=== PATIENT | male | born 1980 | race Caucasian/White ===

== ENCOUNTER 2017-01-03 17:47 | Inpatient (IN) | payer SELFPAY ==
[2017-01-03] MEDS ORDERED: VITAMIN B-1 100 MG, FOLVITE 1 MG, INFUVITE 10 ML in NACL 0.9% 1000 ML 1,000 ML IV ONE (18:18)
[2017-01-03] MEDS ORDERED: ATIVAN IV ONE (18:20)
[2017-01-03] MEDS ORDERED: ATIVAN ONE (18:21)
[2017-01-03] MEDS ORDERED: NACL 0.9% 1000 ML 1,000 ML IV ONE (18:24)
--- NOTE | 2017-01-03 18:30 | Emergency Department Report ---
ED Alcohol HPI - General Chief Complaint: Psych Stated Complaint: CHEST PAIN Time Seen by Provider: 01/03/17 18:18 Source: patient Mode of arrival: Ambulatory Limitations: No Limitations - History of Present Illness Initial Comments: 36-year-old male with a history of alcohol abuse presents to the hospital complaining of chest pain and left-sided pain. Patient called a friend and asked for a ride. The friend states that when she arrived patient was complaining of left-sided chest pain, hand numbness, and left-sided pain and requested be brought to the ER for evaluation. Patient drinks about a fifth of whiskey daily with last drink reported today. He was admitted to another hospital 3 days ago for alcohol related issues. They're unsure as to which hospital he was admitted to. Patient is obviously intoxicated and agitated upon arrival. - Related Data Home Medications Medication Instructions Recorded Confirmed Last Taken No Known Home Medications [No 09/03/15 12/24/15 Unknown Reported Home Medications] Allergies Allergy/AdvReac Type Severity Reaction Status Date / Time No Known Allergies Allergy Verified 12/24/15 16:17 ED Review of Systems ROS: Stated complaint: CHEST PAIN Other details as noted in HPI Comment: All other systems reviewed and negative Other: Constitutional: No fevers chills Eyes: No eye pain visual changes ENT: No ear pain or throat pain Neck: Denies pain Respiratory: Denies cough Cardiovascular: as per hpi GI: generalized abd pain : Denies dysuria Musculoskeletal: Denies back pain Skin: Denies rash, lesions, erythema Neurologic: + tremors, hand numbness ED Past Medical Hx - Past Medical History Hx Hypertension: Yes Hx Heart Attack/AMI: Yes Hx Psychiatric Treatment: Yes (depression, alcohol abuse) Additional medical history: Patient reports prior history of GA. 4 years ago he describes being admitted for 2 days, to a hospital in [facility], being diagnosed with a heart attack. He cannot describe any tests that were done, even after we described cardiac stress test and cardiac catheterization. They do not sound familiar to him. He did not undergo any procedures such as stenting or bypass. Alcohol dependence and abuse. - Social History Smoking Status: Current Every Day Smoker Substance Use Type: Alcohol - Medications Home Medications: Home Medications Medication Instructions Recorded Confirmed Last Taken Type No Known Home Medications [No 09/03/15 12/24/15 Unknown History Reported Home Medications] ED Physical Exam - General Limitations: Language Barrier, Altered Mental Status - Other Other exam information: General: Alert Head exam: Atraumatic, normocephalic Eyes exam: Normal appearance, pupils equal reactive to light, extraocular movements intact ENT: Moist mucous membrane Neck exam: Normal inspection, full range of motion, no meningismus nontender Respiratory exam: Clear to auscultation bilateral, no wheezes, rales, crackles Cardiovascular: Normal rate and rhythm, normal heart sounds Abdomen: Soft, nondistended, generalized abdominal tenderness, with normal bowel sounds, no rebound, or guarding Extremity: Full range of motion normal inspection no deformity. Tenderness to palpation of his bilateral legs and arms Back: Normal Inspection, full range of motion, no tenderness Neurologic: Alert, oriented x3, cranial nerves intact, no motor or sensory deficit Psychiatric: Agitated Skin: Warm, dry, intact ED Course Vital Signs 01/03/17 01/03/17 01/03/17 17:57 18:10 18:11 Pulse Rate 127 H Respiratory 18 Rate Blood Pressure 134/93 123/84 Blood Pressure [Left] O2 Sat by Pulse 97 95 94 Oximetry 01/03/17 01/03/17 01/03/17 18:12 18:14 18:16 Pulse Rate 113 H 112 H Respiratory 37 H 34 H 32 H Rate Blood Pressure 123/84 123/84 123/84 Blood Pressure [Left] O2 Sat by Pulse 98 93 98 Oximetry 01/03/17 01/03/17 01/03/17 18:18 18:20 18:22 Pulse Rate 120 H 114 H 110 H Respiratory 32 H 22 13 Rate Blood Pressure 123/84 123/84 123/84 Blood Pressure [Left] O2 Sat by Pulse 96 97 95 Oximetry 01/03/17 01/03/17 01/03/17 18:24 18:26 18:28 Pulse Rate 114 H 113 H 112 H Respiratory 13 22 16 Rate Blood Pressure 123/84 123/84 123/84 Blood Pressure [Left] O2 Sat by Pulse 96 97 97 Oximetry 01/03/17 01/03/17 01/03/17 18:30 18:32 18:34 Pulse Rate 111 H 113 H 110 H Respiratory 18 16 20 Rate Blood Pressure 123/84 123/84 123/84 Blood Pressure [Left] O2 Sat by Pulse 97 95 95 Oximetry 01/03/17 01/03/17 01/03/17 18:36 18:38 19:56 Pulse Rate 113 H 80 Respiratory 25 H 21 16 Rate Blood Pressure 123/84 123/84 Blood Pressure 123/87 [Left] O2 Sat by Pulse 96 98 100 Oximetry 01/03/17 23:03 Pulse Rate 107 H Respiratory 16 Rate Blood Pressure Blood Pressure 124/104 [Left] O2 Sat by Pulse 96 Oximetry - Reevaluation(s) Reevaluation #1: 01/03/17 18:31 Patient is extremely agitated with tremors and increased heart rate upon arrival. Ativan 1mg, 1 L of normal saline, and banana bag ordered Reevaluation #2: 01/04/17 00:42 Patient's heart rate did improve to the 80s however, now heart rate is improved to 120s and patient is getting jittery with tremors. Additional Ativan 1 mg ordered at this time. Plan to admit patient ED Medical Decision Making - Lab Data Result diagrams: 01/03/17 18:19 01/03/17 18:19 Lab Results 01/03/17 01/03/17 01/03/17 Range/Units 18:19 18:19 18:19 WBC 9.0 (4.5-11.0) K/mm3 RBC 4.86 (3.65-5.03) M/mm3 Hgb 15.4 H (11.8-15.2) gm/dl Hct 46.0 H (35.5-45.6) % MCV 95 H (84-94) fl MCH 32 (28-32) pg MCHC 33 (32-34) % RDW 13.7 (13.2-15.2) % Plt Count 263 (140-440) K/mm3 Lymph % (Auto) 34.5 (13.4-35.0) % Snyder % (Auto) 10.3 H (0.0-7.3) % Eos % (Auto) 0.2 (0.0-4.3) % Baso % (Auto) 0.4 (0.0-1.8) % Lymph # 3.1 (1.2-5.4) K/mm3 Snyder # 0.9 H (0.0-0.8) K/mm3 Eos # 0.0 (0.0-0.4) K/mm3 Baso # 0.0 (0.0-0.1) K/mm3 Seg Neutrophils % 54.6 (40.0-70.0) % Seg Neutrophils # 4.9 (1.8-7.7) K/mm3 Sodium 142 (137-145) mmol/L Potassium 3.1 L (3.6-5.0) mmol/L Chloride 95.4 L (98-107) mmol/L Carbon Dioxide 22 (22-30) mmol/L Anion Gap 28 mmol/L BUN 10 (9-20) mg/dL Creatinine 0.9 (0.8-1.5) mg/dL Estimated GFR > 60 ml/min BUN/Creatinine Ratio 11.11 % Glucose 153 H (75-100) mg/dL Calcium 8.8 (8.4-10.2) mg/dL Magnesium (1.7-2.3) mg/dL Total Bilirubin 0.20 (0.1-1.2) mg/dL AST 17 (5-40) units/L ALT 35 (7-56) units/L Alkaline Phosphatase 83 (35-129) units/L Troponin T < 0.010 (0.00-0.029) ng/mL Total Protein 7.6 (6.3-8.2) g/dL Albumin 4.4 (3.9-5) g/dL Albumin/Globulin Ratio 1.4 % Lipase 31 (13-60) units/L Urine Color (Yellow) Urine Turbidity (Clear) Urine pH (5.0-7.0) Ur Specific [place] (1.003-1.030) Urine Protein (Negative) mg/dL Urine Glucose (UA) (Negative) mg/dL Urine Ketones (Negative) mg/dL Urine Blood (Negative) Urine Nitrite (Negative) Urine Bilirubin (Negative) Urine Urobilinogen (<2.0) mg/dL Ur Leukocyte Esterase (Negative) Urine WBC (Auto) (0.0-6.0) /HPF Urine RBC (Auto) (0.0-6.0) /HPF Urine Bacteria (Auto) (Negative) /HPF Urine Mucus /HPF Urine Opiates Screen Urine Methadone Screen Ur Barbiturates Screen Ur Phencyclidine Scrn Ur Amphetamines Screen U Benzodiazepines Scrn Urine Cocaine Screen U Marijuana (THC) Screen Drugs of Abuse Note Plasma/Serum Alcohol (0-0.07) gm% 01/03/17 01/03/17 01/03/17 Range/Units 18:19 18:19 19:55 WBC (4.5-11.0) K/mm3 RBC (3.65-5.03) M/mm3 Hgb (11.8-15.2) gm/dl Hct (35.5-45.6) % MCV (84-94) fl MCH (28-32) pg MCHC (32-34) % RDW (13.2-15.2) % Plt Count (140-440) K/mm3 Lymph % (Auto) (13.4-35.0) % Snyder % (Auto) (0.0-7.3) % Eos % (Auto) (0.0-4.3) % Baso % (Auto) (0.0-1.8) % Lymph # (1.2-5.4) K/mm3 Snyder # (0.0-0.8) K/mm3 Eos # (0.0-0.4) K/mm3 Baso # (0.0-0.1) K/mm3 Seg Neutrophils % (40.0-70.0) % Seg Neutrophils # (1.8-7.7) K/mm3 Sodium (137-145) mmol/L Potassium (3.6-5.0) mmol/L Chloride (98-107) mmol/L Carbon Dioxide (22-30) mmol/L Anion Gap mmol/L BUN (9-20) mg/dL Creatinine (0.8-1.5) mg/dL Estimated GFR ml/min BUN/Creatinine Ratio % Glucose (75-100) mg/dL Calcium (8.4-10.2) mg/dL Magnesium 2.10 (1.7-2.3) mg/dL Total Bilirubin (0.1-1.2) mg/dL AST (5-40) units/L ALT (7-56) units/L Alkaline Phosphatase (35-129) units/L Troponin T (0.00-0.029) ng/mL Total Protein (6.3-8.2) g/dL Albumin (3.9-5) g/dL Albumin/Globulin Ratio % Lipase (13-60) units/L Urine Color Straw (Yellow) Urine Turbidity Clear (Clear) Urine pH 5.0 (5.0-7.0) Ur Specific [place] 1.008 (1.003-1.030) Urine Protein <15 mg/dl (Negative) mg/dL Urine Glucose (UA) Neg (Negative) mg/dL Urine Ketones Neg (Negative) mg/dL Urine Blood Neg (Negative) Urine Nitrite Neg (Negative) Urine Bilirubin Neg (Negative) Urine Urobilinogen < 2.0 (<2.0) mg/dL Ur Leukocyte Esterase Neg (Negative) Urine WBC (Auto) 1.0 (0.0-6.0) /HPF Urine RBC (Auto) 2.0 (0.0-6.0) /HPF Urine Bacteria (Auto) 1+ (Negative) /HPF Urine Mucus Few /HPF Urine Opiates Screen Urine Methadone Screen Ur Barbiturates Screen Ur Phencyclidine Scrn Ur Amphetamines Screen U Benzodiazepines Scrn Urine Cocaine Screen U Marijuana (THC) Screen Drugs of Abuse Note Plasma/Serum Alcohol 0.35 H (0-0.07) gm% 01/03/17 01/03/17 Range/Units 19:55 21:03 WBC (4.5-11.0) K/mm3 RBC (3.65-5.03) M/mm3 Hgb (11.8-15.2) gm/dl Hct (35.5-45.6) % MCV (84-94) fl MCH (28-32) pg MCHC (32-34) % RDW (13.2-15.2) % Plt Count (140-440) K/mm3 Lymph % (Auto) (13.4-35.0) % Snyder % (Auto) (0.0-7.3) % Eos % (Auto) (0.0-4.3) % Baso % (Auto) (0.0-1.8) % Lymph # (1.2-5.4) K/mm3 Snyder # (0.0-0.8) K/mm3 Eos # (0.0-0.4) K/mm3 Baso # (0.0-0.1) K/mm3 Seg Neutrophils % (40.0-70.0) % Seg Neutrophils # (1.8-7.7) K/mm3 Sodium (137-145) mmol/L Potassium (3.6-5.0) mmol/L Chloride (98-107) mmol/L Carbon Dioxide (22-30) mmol/L Anion Gap mmol/L BUN (9-20) mg/dL Creatinine (0.8-1.5) mg/dL Estimated GFR ml/min BUN/Creatinine Ratio % Glucose (75-100) mg/dL Calcium (8.4-10.2) mg/dL Magnesium (1.7-2.3) mg/dL Total Bilirubin (0.1-1.2) mg/dL AST (5-40) units/L ALT (7-56) units/L Alkaline Phosphatase (35-129) units/L Troponin T < 0.010 (0.00-0.029) ng/mL Total Protein (6.3-8.2) g/dL Albumin (3.9-5) g/dL Albumin/Globulin Ratio % Lipase (13-60) units/L Urine Color (Yellow) Urine Turbidity (Clear) Urine pH (5.0-7.0) Ur Specific [place] (1.003-1.030) Urine Protein (Negative) mg/dL Urine Glucose (UA) (Negative) mg/dL Urine Ketones (Negative) mg/dL Urine Blood (Negative) Urine Nitrite (Negative) Urine Bilirubin (Negative) Urine Urobilinogen (<2.0) mg/dL Ur Leukocyte Esterase (Negative) Urine WBC (Auto) (0.0-6.0) /HPF Urine RBC (Auto) (0.0-6.0) /HPF Urine Bacteria (Auto) (Negative) /HPF Urine Mucus /HPF Urine Opiates Screen Presumptive negative Urine Methadone Screen Presumptive negative Ur Barbiturates Screen Presumptive positive Ur Phencyclidine Scrn Presumptive negative Ur Amphetamines Screen Presumptive negative U Benzodiazepines Scrn Presumptive negative Urine Cocaine Screen Presumptive negative U Marijuana (THC) Screen Presumptive negative Drugs of Abuse Note Disclamer Plasma/Serum Alcohol (0-0.07) gm% - EKG Data -: EKG Interpreted by Me (nsr rate 120 ) - EKG Data When compared to previous EKG there are: no significant change - Medical Decision Making Plan to admit patient for acute alcohol intoxication followed by withdrawal symptoms. Patient is not safe for discharge at this time and is further medication management. EKG and cardiac enzymes unremarkable. UDS positive for Barbituates. By mouth potassium given for mild hypokalemia - Differential Diagnosis alcohol intoxication/withdrawal,electrolye abnormalities, GA, atypical cp Critical Care Time: No Critical care attestation.: If time is entered above; I have spent that time in minutes in the direct care of this critically ill patient, excluding procedure time. ED Disposition Clinical Impression: Alcohol abuse, Alcohol intoxication delirium, Alcohol withdrawal, Hypokalemia, Chest pain Disposition: OP ADMITTED IP TO THIS HOSP Is pt being admited?: Yes Condition: Stable Time of Disposition: 00:44 (dr medina/hospitalist)
[2017-01-03 18:51] LABS: Basophils % (Auto) 0.4 % (0.0-1.8); Eosinophils % (Auto) 0.2 % (0.0-4.3); Hemoglobin 15.4 gm/dl (11.8-15.2); Mean Corpuscular HGB Conc 33 % (32-34); Mean Corpuscular Hemoglobin 32 pg (28-32); Mean Corpuscular Volume 95 fl (84-94); Platelet Count 263 K/mm3 (140-440); Red Blood Count 4.86 M/mm3 (3.65-5.03); Red Cell Distribution Width 13.7 % (13.2-15.2)
[2017-01-03 19:38] LABS: Alanine Aminotransferase 35 units/L (7-56); Albumin 4.4 g/dL (3.9-5); Albumin/Globulin Ratio 1.4 %; Alkaline Phosphatase 83 units/L (35-129); Anion Gap 28 mmol/L; BUN/Creatinine Ratio 11.11; Blood Urea Nitrogen 10 mg/dL (9-20); Calcium 8.8 mg/dL (8.4-10.2); Carbon Dioxide 22 mmol/L (22-30); Chloride 95.4 mmol/L (98-107); Glucose 153 mg/dL (75-100); Lipase 31 units/L (13-60); Potassium 3.1 mmol/L (3.6-5.0); Sodium 142 mmol/L (137-145); Total Protein 7.6 g/dL (6.3-8.2)
[2017-01-03] MEDS ORDERED: K-DUR PO ONE (19:40)
[2017-01-03 20:15] LABS: Urine Drugs of Abuse Note Disclamer
[2017-01-03 20:27] LABS: Bacteria,Urine 1+ /HPF (Negative); Bilirubin,Urine NEG (Negative); Blood,Urine NEG (Negative); Ketones,Urine NEG (Negative); Leukocyte Esterase,Urine NEG (Negative); Mucus,Urine FEW /HPF; Nitrite,Urine NEG (Negative); Protein,Urine <15 mg/dL mg/dL (Negative); Urobilinogen,Urine < 2.0 mg/dL (<2.0)
[2017-01-04] MEDS ORDERED: ATIVAN IV ONE (00:42)
[2017-01-04] MEDS ORDERED: ATIVAN IV PRN ×2 (00:45)
--- NOTE | 2017-01-04 01:32 | History and Physical Report ---
History of Present Illness Date of examination: 01/04/17 History of present illness: 36-year-old man with a history of alcohol abuse comes emergency room with complaining of abdominal pain, urinating blood. Abdominal pain is in the right mid abdomen which she describes a sharp pain, constant, intensity 5/10, radiating all over his abdomen. He cannot identify exacerbating or relieving factors. He admits to nausea, dizziness, blurred vision. Also complaining of left flank pain. The symptoms have been ongoing over the last 3 days. He stated that whenever he drinkshe gets chest pain Patient denies palpitation, shortness of breath, cough, , hematochezia, dysuria , frequency, focal weakness, dysarthria, fever chills, polydipsia polyuria, hot or cold intolerance, easy bruisability, or rash or bleeding from mucosal membrane, rhinorrhea, epistaxis, earache, tinnitus, blurry vision, eye discharge , anxiety, depression. Other review of systems negative PAST SURGICAL HISTORY: None SOCIAL HISTORY: Drank one fifth of whiskey a day, denied drug use but urine is positive for barbiturates, no tobacco FAMILY HISTORY: Hypertension Medications and Allergies Allergies Allergy/AdvReac Type Severity Reaction Status Date / Time No Known Allergies Allergy Verified 12/24/15 16:17 Home Medications Medication Instructions Recorded Confirmed Last Taken Type No Known Home Medications [No 09/03/15 12/24/15 Unknown History Reported Home Medications] Active Meds: Active Medications Lorazepam (Ativan) 2 mg IV Q1HR PRN PRN Reason: CIWA-Ar 8-15 Lorazepam (Ativan) 4 mg IV Q1HR PRN PRN Reason: CIWA-Ar 16-25 Lorazepam (Ativan) 4 mg IV Q15MIN PRN PRN Reason: CIWA-Ar >25 Exam - Physical Exam Narrative exam: Gen. appearance: Patient lying in bed, no apparent distress HEENT: Normocephalic, atraumatic, pupils equally round and reactive to light, extraocular movement intact, and no sclericterus,. No JVD or thyromegaly or nodule,neck supple, no carotid bruit ,mucous membranes moist, no exudate or erythema Heart: S1, S2, regular rate and rhythm Lungs: Clear to auscultation bilaterally, breathing comfortable Abdomen: Positive bowel sounds, tender in right side, nondistended, no organomegaly Extremity: No edema, cyanosis, clubbing Skin: No rash, nodules, warm, dry Neuro: Oriented 3, cranial nerves II-12 intact, speech is fluent, motor and sensory intact - Constitutional Vitals: Temp Pulse Resp BP Pulse Ox 118 H 20 116/77 96 01/04/17 01:00 01/04/17 01:00 01/04/17 01:00 01/04/17 01:00 Results - Labs CBC & Chem 7: 01/05/17 05:23 01/05/17 05:23 Labs: Abnormal lab results 01/03/17 01/03/17 01/03/17 Range/Units 18:19 18:19 18:19 Hgb 15.4 H (11.8-15.2) gm/dl Hct 46.0 H (35.5-45.6) % MCV 95 H (84-94) fl [place] % (Auto) 10.3 H (0.0-7.3) % [place] # 0.9 H (0.0-0.8) K/mm3 Potassium 3.1 L (3.6-5.0) mmol/L Chloride 95.4 L (98-107) mmol/L Glucose 153 H (75-100) mg/dL Plasma/Serum Alcohol 0.35 H (0-0.07) gm% Assessment and Plan Abdominal pain Hematuria, rule out kidney stone Alcoholic withdrawal Alcoholic Abuse AMS Thrombocytopenia Admit to medicine Obtain CAT scan of the abdomen and pelvis, start IV fluids, pain medication Start CIWA protocol withh IV ativan Start IV thiamine, folic acid DVT prophalaxis with SCD
[2017-01-04] MEDS ORDERED: ZOFRAN IV PRN (01:35)
[2017-01-04] MEDS ORDERED: DULCOLAX PR PRN (01:35)
[2017-01-04] MEDS ORDERED: MILK OF MAGNESIA PO PRN (01:35)
[2017-01-04] MEDS ORDERED: TYLENOL PO PRN (01:35)
--- NOTE | 2017-01-04 02:57 | Cat Scan Report ---
FINAL REPORT PROCEDURE: CT ABDOMEN PELVIS WO CON TECHNIQUE: Computerized axial tomography of the abdomen and pelvis was performed without intravenous contrast. This study is performed without intravascular contrast material and its sensitivity for abdominal and pelvic pathology, including neoplasms, inflammation, abscess, free fluid, thrombosis, arterial dissection and infarction, is reduced compared with a contrast enhanced study. HISTORY: hematuria, abd pain COMPARISON: No prior studies are available for comparison. FINDINGS: Visualized lower thorax: No significant abnormality. Liver: Normal size and attenuation. Spleen: Normal size and attenuation. Gallbladder and biliary system: Normal. Pancreas: Normal. Adrenals: Normal. Kidneys: Both kidneys have a normal size. No hydronephrosis. No renal stones or masses. GI tract: No obstruction. No ileus or enteritis. The cecum and appendix are normal. There is some thickening of the transverse colon wall, short segment colitis is suspected this region. This the remainder the colon has a normal appearance.. Lymph nodes and mesentery: Normal. Vasculature: Normal. Bladder: Normal. Reproductive organs: Normal. Peritoneum: No free fluid. Musculoskeletal structures: No significant abnormality. Other: None. IMPRESSION: There is no evidence of intestinal or urinary tract obstruction. No ileus or enteritis. There is some thickening of the colon wall involving the transverse colon, short segment colitis in this region is suspected..
[2017-01-04] MEDS: ATIVAN IV PRN ×3 (03:10→17:59)
[2017-01-04] MEDS: MORPHINE IV PRN ×3 (03:13→20:22)
[2017-01-04] MEDS: FLAGYL 500 MG/100 ML 500 MG/100 ML BAG IV SCH ×3 (06:53→21:35)
[2017-01-04] MEDS: LEVAQUIN 750MG/150ML 750 MG/150 ML BAG IV SCH (08:36)
--- NOTE | 2017-01-04 10:09 | Event Note ---
Date: 01/04/17 Patient admitted for alcohol withdrawal. He was seen and examined. Continue [facility] protocol. Continue current management.
[2017-01-04] MEDS: VITAMIN B-1 PO SCH (10:17)
[2017-01-04] MEDS: NACL 0.9% 1000 ML 1,000 ML IV SCH ×2 (10:17→21:36)
[2017-01-04] MEDS: FOLVITE PO SCH (10:17)
--- NOTE | 2017-01-04 18:02 | Admit Criteria Form ---
Admission Criteria Documentation: SUBSTANCE ABUSE Clinical Indications for Admission to Inpatient Care (Place 'X' for any and all applicable criteria): Admission is indicated due to ANY ONE of the following(1)(2)(3)(4)(5): [ X]I. Delirium due to alcohol or sedative A withdrawal B ( Also use Delirium Criteria as appropriate)1,6,7 [ ]II. Alcohol or sedative withdrawal with high-risk indicator as manifested by ALL of the following1,3,6,7 [ ]a) Signs of withdrawal as indicated by ANY ONE of the following: []i) Heart rate greater than 100 beats per minute [ ]ii) Nausea or vomiting [ ]iii) Other physical signs of alcohol or sedative withdrawal [ ]iv) Tremor [ ](v) Increased perspiration [ ]b) Elevated risk due to a historical or comorbid factor as indicated by ANY ONE of the following: [ ]i) History of delirium due to alcohol or sedative withdrawal [ ]ii) History of repetitive seizures due to alcohol or sedative withdrawal C [ ]iii) Intrinsic seizure disorder (epilepsy) [ ]iv) [ ]v) Comorbid medical condition that can be dangerously destabilized by alcohol or sedative withdrawal (eg, severe cardiac disease) [ ]III. Severe alcohol or sedative withdrawal that is unmanageable at lower level of care, as manifested by ALL of the following1,3,6,7 [ ]a) Marked signs of withdrawal as indicated by ANY ONE of the following: [ ]i) Heart rate greater than 120 beats per minute [ ]ii) Vomiting [ ]iii) Grossly visible tremor [ ]iv) Profuse perspiration [ ]v) Temperature greater than 38.3 degrees C (101 degrees F) [ ]vi) Other marked physical signs of alcohol or sedative withdrawal [ ]b) Signs of withdrawal which require inpatient treatment as indicated by ANY ONE of the following: [ ]i) Inadequate response to pharmacotherapy in emergency department or other appropriate lower level of care [ ]ii) Lower level of care not feasible or appropriate (eg, unavailable or inappropriate to patient condition or treatment history) [ ]IV. Severely complicated opioid withdrawal that requires ojruzv-szc-zdean care as manifested by ALL of the following 1,4,7,11 [ ]a) Vomiting or diarrhea due to opioid withdrawal [ ]b) Marked dehydration or electrolyte abnormality that cannot be corrected (to near normal) in an emergency department or other ambulatory setting (eg, serum K<2.5 mEq/L , serum Na <130 mEq/L [ X]V. Acute toxicity or instability from substance use requiring inpatient care (eg, altered mental status, respiratory depression) that has had inadequate response to, or is judged inappropriate for, treatment at lower level of care (eg, emergency department, observation care) [ ]. Other inpatient medical or psychiatric care is needed due to risk or comorbidity as indicated by ALL of the following(18): [ ]a) Treatment is needed because of patient risk due to ANY ONE of the following: [ ]i) Medical condition (eg, severe cardiac disease) that requires 24-hour monitoring and treatment due to danger of destabilization by alcohol or sedative withdrawal is present [ ]ii) Imminent danger to self is present due to ANY ONE of the following(19)(20)(21): [ ]1) Imminent risk for recurrence of Suicide attempt or act of serious Harm to self is present as indicated by ALL of the following: [ ]A. There has been very recent Suicide attempt or deliberate act of serious Harm to self. [ ]B. There has not been Sufficient relief of the factors that precipitated the attempt or act. [ ]2) Current plan for suicide or serious Harm to self is present. [ ]3) Command auditory hallucinations for suicide or serious Harm to self are present. [ ]4) Patient has persistent Thoughts of suicide or serious Harm to self that cannot be adequately monitored at lower level of care due to ANY ONE of the following[E]: [ ]A. Insufficient behavioral care is available to meet patient needs (such as required provider or lower level facility is not available). [ ]B. Patient characteristics such as high impulsivity or unreliability are present. [ ]C. Environment does not support recovery. [ ]D. Ready access to lethal means [ ]iii) Imminent danger to others is present due to ANY ONE of the following(19)(23)(24): [ ]1) Imminent risk for recurrence of attempt to seriously Harm another is present as indicated by ALL of the following: [ ]A. There has been very recent attempt to seriously Harm another. [ ]B. There has not been Sufficient relief of factors that precipitated the attempt or act. [ ]2) Current plan for homicide or serious Harm to another is present. [ ]3) Command auditory hallucinations or paranoid delusions contributing to risk for homicide or serious Harm to another are present. [ ]4) Patient has persistent thoughts of homicide or serious Harm to another that cannot be adequately monitored at lower level of care because of ANY ONE of the following[E]: [ ]A. Insufficient behavioral care is available to meet patient needs (such as required provider or lower level facility is not available). [ ]B. High impulsivity or unreliability is present. [ ]C. Environment does not support recovery. [ ]D. Ready access to lethal means [ ]iv) Severe dysfunction in daily living related to substance use disorder as indicated by ANY ONE of the following(33): [ ]a) Extreme deterioration in social interactions (eg , threatening behaviors with little or no provocation) [ ]b) Complete withdrawal from all social interactions [ ]c) Complete neglect of self-care with associated impairment in physical status [ ]d) Extreme disruption in vegetative function (eg, life-sustaining functions such as eating) [ ]e) Complete inability to maintain any appropriate aspect of personal responsibility in any adult roles (eg, occupational, parental ) [ ]v) Other emotional, behavioral, or cognitive symptoms of sufficient severity to preclude ability to engage in recovery without 24-hour monitoring and treatment are present. [ ]vi) Patient requires monitoring due to substance use in combination with medical, psychiatric, or environmental factors that prevent adequate management at lower level of care as indicated by ALL of the following: [ ]1) Significant substance use effects, medical conditions, or psychiatric comorbidities are present as indicated by ANY ONE of the following [ ]A. Substance toxicity or withdrawal requires medical monitoring. [ ]B. Medical comorbidity requires medical monitoring for destabilization due to alcohol or sedative withdrawal. [ ]C. Emotional, behavioral, or cognitive symptoms of sufficient severity to limit or preclude ability to engage in treatment are present. [ ]2) Conditions, barriers, or environmental factors preventing treatment at lower level of care are present as indicated by ANY ONE of the following: [ ]A. Psychiatric comorbidity or opposition to treatment requires 24-hour setting to ensure adherence with medical treatment or adequate motivating interventions. [ ]B. Severe behavioral problems (eg, escalating relapse behaviors, acute psychiatric or substance use crisis, inability to recognize signs and symptoms of relapse ) require 24-hour setting for relapse prevention.[F] [ ]C. Living environment outside of 24-hour setting prevents recovery (eg, abuse, victimization, patient inability to cope). [ ]b Treatment situation and needs are appropriate for inpatient level ( instead of using lower level of care) as indicated by ANY ONE of the following( 25)(26)(27): [ ]i) Patient is unwilling to participate voluntarily and requires treatment (eg, legal commitment) in involuntary unit.(23) [ ]ii) Voluntary treatment at lower level is not feasible (eg, lower level care unavailable or inappropriate for patient condition). [ ]iii) Physical restraint, seclusion, or other involuntary control is needed (eg, actively violent patient for whom treatment in an involuntary unit is deemed necessary in accord with applicable medical and legal criteria).(23) [ ]iv) Esjjph-ltm-verfw medical or nursing care to address symptoms and initiate interventions is required; specific need is identified. Extended stay beyond goal length of stay may be needed for: [ ]a) Onset of delirium [ ]b) Recurrent seizures [ ]c) Persistent severe alcohol or sedative withdrawal [ ]d) Persistent dangerous behavior The original [facility] content created by [employer] has been revised. The portions of the content which have been revised are identified through the use of italic text or in bold, and [facility] has neither reviewed nor approved the modified material. All other unmodified content is copyright [facility]. Please see references footnoted in the original [facility] edition 2016
[2017-01-05] MEDS: FLAGYL 500 MG/100 ML 500 MG/100 ML BAG IV SCH ×3 (06:48→22:13)
[2017-01-05] MEDS: NACL 0.9% 1000 ML 1,000 ML IV SCH (06:48)
[2017-01-05 07:40] LABS: Hematocrit 39.5 % (35.5-45.6); Mean Corpuscular HGB Conc 33 % (32-34); Mean Corpuscular Hemoglobin 31 pg (28-32); Mean Corpuscular Volume 94 fl (84-94); Platelet Count 199 K/mm3 (140-440); Red Cell Distribution Width 12.9 % (13.2-15.2); White Blood Count 7.2 K/mm3 (4.5-11.0)
[2017-01-05 07:41] LABS: Anion Gap 20 mmol/L; BUN/Creatinine Ratio 8.57; Blood Urea Nitrogen 6 mg/dL (9-20); Calcium 8.5 mg/dL (8.4-10.2); Carbon Dioxide 24 mmol/L (22-30); Chloride 100.6 mmol/L (98-107); Glucose 90 mg/dL (75-100); Potassium 3.3 mmol/L (3.6-5.0); Sodium 141 mmol/L (137-145)
--- NOTE | 2017-01-05 09:53 | Progress Note ---
Assessment and Plan Assessment and plan: Abdominal pain due to colitis. Colitis. On Levaquin and Flagyl iv. Morphine iv prn. Colitis seen on CT Abdomen. Less abdominal pain. Alcohol withdrawal syndrome. On [facility] protocol Alcohol abuse. Patient drinks a fifth of whiskey daily. DVT prophylaxis. Lovenox Full code status History Interval history: abdominal pain, alcohol abuse Hospitalist Physical - Physical exam Narrative exam: Appearance: Not in acute distress, obese, HEENT: normocephalic, atraumatic Neck : supple, no JVD Lungs: Clear to auscultation bilaterally, no crackles or wheeze Heart : S1 and S2 regular, no murmurs, rubs or gallop Abdomen: soft, mild tender, non-distended, normal bowel sounds Extremities: No edema, no clubbing, no cyanosis Neuro: Awake, alert, moves all extremities, Psych: normal mood - Constitutional Vitals: Temp Pulse Resp BP Pulse Ox 97.8 F 87 20 147/100 99 01/05/17 04:00 01/05/17 04:00 01/05/17 04:00 01/05/17 04:00 01/05/17 04:00 Results - Labs CBC & Chem 7: 01/05/17 05:23 01/05/17 05:23 Labs: Laboratory Last Values WBC 7.2 K/mm3 (4.5-11.0) 01/05/17 05:23 RBC 4.20 M/mm3 (3.65-5.03) 01/05/17 05:23 Hgb 13.0 gm/dl (11.8-15.2) 01/05/17 05:23 Hct 39.5 % (35.5-45.6) D 01/05/17 05:23 MCV 94 fl (84-94) 01/05/17 05:23 MCH 31 pg (28-32) 01/05/17 05:23 MCHC 33 % (32-34) 01/05/17 05:23 RDW 12.9 % (13.2-15.2) L 01/05/17 05:23 Plt Count 199 K/mm3 (140-440) 01/05/17 05:23 Lymph % (Auto) 34.5 % (13.4-35.0) 01/03/17 18:19 [place] % (Auto) Test Bore Helper 01/05/17 05:23 Eos % (Auto) 0.2 % (0.0-4.3) 01/03/17 18:19 Baso % (Auto) 0.4 % (0.0-1.8) 01/03/17 18:19 Lymph # 3.1 K/mm3 (1.2-5.4) 01/03/17 18:19 [place] # 0.9 K/mm3 (0.0-0.8) H 01/03/17 18:19 Eos # 0.0 K/mm3 (0.0-0.4) 01/03/17 18:19 Baso # 0.0 K/mm3 (0.0-0.1) 01/03/17 18:19 Seg Neutrophils % 54.6 % (40.0-70.0) 01/03/17 18:19 Seg Neutrophils # 4.9 K/mm3 (1.8-7.7) 01/03/17 18:19 Sodium 141 mmol/L (137-145) 01/05/17 05:23 Potassium 3.3 mmol/L (3.6-5.0) L 01/05/17 05:23 Chloride 100.6 mmol/L (98-107) 01/05/17 05:23 Carbon Dioxide 24 mmol/L (22-30) 01/05/17 05:23 Anion Gap 20 mmol/L 01/05/17 05:23 BUN 6 mg/dL (9-20) L 01/05/17 05:23 Creatinine 0.7 mg/dL (0.8-1.5) L 01/05/17 05:23 Estimated GFR > 60 ml/min 01/05/17 05:23 BUN/Creatinine Ratio 8.57 % 01/05/17 05:23 Glucose 90 mg/dL (75-100) 01/05/17 05:23 Calcium 8.5 mg/dL (8.4-10.2) 01/05/17 05:23 Magnesium 2.10 mg/dL (1.7-2.3) 01/03/17 18:19 Total Bilirubin 0.20 mg/dL (0.1-1.2) 01/03/17 18:19 AST 17 units/L (5-40) 01/03/17 18:19 ALT 35 units/L (7-56) 01/03/17 18:19 Alkaline Phosphatase 83 units/L (35-129) 01/03/17 18:19 Troponin T < 0.010 ng/mL (0.00-0.029) 01/04/17 00:51 Total Protein 7.6 g/dL (6.3-8.2) 01/03/17 18:19 Albumin 4.4 g/dL (3.9-5) 01/03/17 18:19 Albumin/Globulin Ratio 1.4 % 01/03/17 18:19 Lipase 31 units/L (13-60) 01/03/17 18:19 Urine Color Straw (Yellow) 01/03/17 19:55 Urine Turbidity Clear (Clear) 01/03/17 19:55 Urine pH 5.0 (5.0-7.0) 01/03/17 19:55 Ur Specific [place] 1.008 (1.003-1.030) 01/03/17 19:55 Urine Protein <15 mg/dl mg/dL (Negative) 01/03/17 19:55 Urine Glucose (UA) Neg mg/dL (Negative) 01/03/17 19:55 Urine Ketones Neg mg/dL (Negative) 01/03/17 19:55 Urine Blood Neg (Negative) 01/03/17 19:55 Urine Nitrite Neg (Negative) 01/03/17 19:55 Urine Bilirubin Neg (Negative) 01/03/17 19:55 Urine Urobilinogen < 2.0 mg/dL (<2.0) 01/03/17 19:55 Ur Leukocyte Esterase Neg (Negative) 01/03/17 19:55 Urine WBC (Auto) 1.0 /HPF (0.0-6.0) 01/03/17 19:55 Urine RBC (Auto) 2.0 /HPF (0.0-6.0) 01/03/17 19:55 Urine Bacteria (Auto) 1+ /HPF (Negative) 01/03/17 19:55 Urine Mucus Few /HPF 01/03/17 19:55 Urine Opiates Screen Presumptive negative 01/03/17 19:55 Urine Methadone Screen Presumptive negative 01/03/17 19:55 Ur Barbiturates Screen Presumptive positive 01/03/17 19:55 Ur Phencyclidine Scrn Presumptive negative 01/03/17 19:55 Ur Amphetamines Screen Presumptive negative 01/03/17 19:55 U Benzodiazepines Scrn Presumptive negative 01/03/17 19:55 Urine Cocaine Screen Presumptive negative 01/03/17 19:55 U Marijuana (THC) Screen Presumptive negative 01/03/17 19:55 Drugs of Abuse Note Disclamer 01/03/17 19:55 Plasma/Serum Alcohol 0.35 gm% (0-0.07) H 01/03/17 18:19
[2017-01-05 11:05] LABS: Blastocytes % (Manual) 0 %
[2017-01-05 11:06] LABS: Diff Status Complete; RBC Morphology Normal
[2017-01-05] MEDS: LEVAQUIN 750MG/150ML 750 MG/150 ML BAG IV SCH (11:14)
[2017-01-05] MEDS: MORPHINE IV PRN (11:15)
[2017-01-05] MEDS: VITAMIN B-1 PO SCH (11:16)
[2017-01-05] MEDS: FOLVITE PO SCH (11:16)
[2017-01-05] MEDS: ATIVAN IV PRN (11:17)
[2017-01-05] MEDS: K-DUR PO SCH (22:14)
[2017-01-05] MEDS: LOVENOX SUB-Q SCH (22:20)
[2017-01-06] MEDS: K-DUR PO SCH (06:18)
[2017-01-06] MEDS: FLAGYL 500 MG/100 ML 500 MG/100 ML BAG IV SCH ×3 (06:18→21:23)
[2017-01-06] MEDS: NACL 0.9% 1000 ML 1,000 ML IV SCH ×2 (08:42→18:22)
[2017-01-06] MEDS: MORPHINE IV PRN ×3 (08:54→21:27)
[2017-01-06] MEDS: LEVAQUIN 750MG/150ML 750 MG/150 ML BAG IV SCH (09:00)
[2017-01-06] MEDS: VITAMIN B-1 PO SCH (09:01)
[2017-01-06] MEDS: FOLVITE PO SCH (09:02)
[2017-01-06 10:27] LABS: Anion Gap 18 mmol/L; Blood Urea Nitrogen 7 mg/dL (9-20); Calcium 8.7 mg/dL (8.4-10.2); Carbon Dioxide 23 mmol/L (22-30); Chloride 101.8 mmol/L (98-107); Glucose 112 mg/dL (75-100); Sodium 139 mmol/L (137-145)
[2017-01-06] MEDS: ATIVAN IV PRN ×2 (15:28→18:16)
--- NOTE | 2017-01-06 15:33 | Progress Note ---
Assessment and Plan Assessment and plan: Abdominal pain secondary to colitis - Patient is on IV Flagyl and Levaquin - Pain control Alcohol abuse/alcohol withdrawal -Patient is [facility] protocol DVT prophylaxis Disposition - We'll continue IV antibiotics today and likely discharge tomorrow. Disposition Plan: Likely discharge home tomorrow. History Interval history: Patient was seen and evaluated this morning, patient still complains of abdominal pain, nausea and vomiting. Hospitalist Physical - Physical exam Narrative exam: Not in cardiopulmonary distress. The patient appeared well nourished and normally developed. Vital signs as documented. Head exam is unremarkable. No scleral icterus . Neck is without jugular venous distension, thyromegaly, or carotid bruits. Lungs are clear to auscultation. Cardiac exam reveals regular rate and Rhythm. First and second heart sounds normal. No murmurs, rubs or gallops. Abdominal exam reveals mild abdominal tenderness. Extremities are nonedematous and both femoral and pedal pulses are normal. BIT TAPPER: Alert and oriented 3. No focal weakness. - Constitutional Vitals: Temp Pulse Resp BP Pulse Ox 98.4 F 78 18 160/98 98 01/06/17 14:35 01/06/17 14:35 01/06/17 14:35 01/06/17 14:35 01/06/17 12:00 Results - Labs CBC & Chem 7: 01/05/17 05:23 01/06/17 09:36 Labs: Laboratory Last Values WBC 7.2 K/mm3 (4.5-11.0) 01/05/17 05:23 RBC 4.20 M/mm3 (3.65-5.03) 01/05/17 05:23 Hgb 13.0 gm/dl (11.8-15.2) 01/05/17 05:23 Hct 39.5 % (35.5-45.6) D 01/05/17 05:23 MCV 94 fl (84-94) 01/05/17 05:23 MCH 31 pg (28-32) 01/05/17 05:23 MCHC 33 % (32-34) 01/05/17 05:23 RDW 12.9 % (13.2-15.2) L 01/05/17 05:23 Plt Count 199 K/mm3 (140-440) 01/05/17 05:23 Lymph % (Auto) 34.5 % (13.4-35.0) 01/03/17 18:19 [place] % (Auto) Patient Biller 01/05/17 05:23 Eos % (Auto) 0.2 % (0.0-4.3) 01/03/17 18:19 Baso % (Auto) 0.4 % (0.0-1.8) 01/03/17 18:19 Lymph # 3.1 K/mm3 (1.2-5.4) 01/03/17 18:19 [place] # 0.9 K/mm3 (0.0-0.8) H 01/03/17 18:19 Eos # 0.0 K/mm3 (0.0-0.4) 01/03/17 18:19 Baso # 0.0 K/mm3 (0.0-0.1) 01/03/17 18:19 Add Manual Diff Complete 01/05/17 05:23 Total Counted 100 01/05/17 05:23 Seg Neutrophils % 54.6 % (40.0-70.0) 01/03/17 18:19 Seg Neuts % (Manual) 52.0 % (40.0-70.0) 01/05/17 05:23 Band Neutrophils % 1.0 % 01/05/17 05:23 Lymphocytes % (Manual) 28.0 % (13.4-35.0) 01/05/17 05:23 Reactive Lymphs % (Man) 0 % 01/05/17 05:23 Monocytes % (Manual) 18.0 % (0.0-7.3) H 01/05/17 05:23 Eosinophils % (Manual) 1.0 % (0.0-4.3) 01/05/17 05:23 Metamyelocytes % 0 % 01/05/17 05:23 Myelocytes % 0 % 01/05/17 05:23 Promyelocytes % 0 % 01/05/17 05:23 Blast Cells % 0 % 01/05/17 05:23 Nucleated RBC % Not Reportable 01/05/17 05:23 Seg Neutrophils # 4.9 K/mm3 (1.8-7.7) 01/03/17 18:19 Seg Neutrophils # Man 3.7 K/mm3 (1.8-7.7) 01/05/17 05:23 Band Neutrophils # 0.1 K/mm3 01/05/17 05:23 Lymphocytes # (Manual) 2.0 K/mm3 (1.2-5.4) 01/05/17 05:23 Abs React Lymphs (Man) 0.0 K/mm3 01/05/17 05:23 Monocytes # (Manual) 1.3 K/mm3 (0.0-0.8) H 01/05/17 05:23 Eosinophils # (Manual) 0.1 K/mm3 (0.0-0.4) 01/05/17 05:23 Basophils # (Manual) 0.0 K/mm3 (0.0-0.1) 01/05/17 05:23 Metamyelocytes # 0.0 K/mm3 01/05/17 05:23 Myelocytes # 0.0 K/mm3 01/05/17 05:23 Promyelocytes # 0.0 K/mm3 01/05/17 05:23 Blast Cells # 0.0 K/mm3 01/05/17 05:23 WBC Morphology Not Reportable 01/05/17 05:23 Hypersegmented Neuts Not Reportable 01/05/17 05:23 Hyposegmented Neuts Not Reportable 01/05/17 05:23 Hypogranular Neuts Not Reportable 01/05/17 05:23 Smudge Cells Not Reportable 01/05/17 05:23 Toxic Granulation Not Reportable 01/05/17 05:23 Toxic Vacuolation Not Reportable 01/05/17 05:23 Dohle Bodies Not Reportable 01/05/17 05:23 Pelger-Huet Anomaly Not Reportable 01/05/17 05:23 Prince Rods Not Reportable 01/05/17 05:23 Platelet Estimate Not Reportable 01/05/17 05:23 Clumped Platelets Not Reportable 01/05/17 05:23 Plt Clumps, EDTA Not Reportable 01/05/17 05:23 Large Platelets Not Reportable 01/05/17 05:23 Giant Platelets Not Reportable 01/05/17 05:23 Platelet Satelliting Not Reportable 01/05/17 05:23 Plt Morphology Comment Not Reportable 01/05/17 05:23 RBC Morphology Normal 01/05/17 05:23 Dimorphic RBCs Not Reportable 01/05/17 05:23 Polychromasia Not Reportable 01/05/17 05:23 Hypochromasia Not Reportable 01/05/17 05:23 Poikilocytosis Not Reportable 01/05/17 05:23 Anisocytosis Not Reportable 01/05/17 05:23 Microcytosis Not Reportable 01/05/17 05:23 Macrocytosis Not Reportable 01/05/17 05:23 Spherocytes Not Reportable 01/05/17 05:23 Pappenheimer Bodies Not Reportable 01/05/17 05:23 Sickle Cells Not Reportable 01/05/17 05:23 Target Cells Not Reportable 01/05/17 05:23 Tear Drop Cells Not Reportable 01/05/17 05:23 Ovalocytes Not Reportable 01/05/17 05:23 Helmet Cells Not Reportable 01/05/17 05:23 Garcia-[place] Bodies Not Reportable 01/05/17 05:23 Stap[place] Rings Not Reportable 01/05/17 05:23 Ney Cells Not Reportable 01/05/17 05:23 Bite Cells Not Reportable 01/05/17 05:23 Crenated Cell Not Reportable 01/05/17 05:23 Elliptocytes Not Reportable 01/05/17 05:23 Acanthocytes (Spur) Not Reportable 01/05/17 05:23 Rouleaux Not Reportable 01/05/17 05:23 Hemoglobin C Crystals Not Reportable 01/05/17 05:23 Schistocytes Not Reportable 01/05/17 05:23 Malaria parasites Not Reportable 01/05/17 05:23 Rahul Bodies Not Reportable 01/05/17 05:23 Hem Pathologist Commnt No 01/05/17 05:23 Sodium 139 mmol/L (137-145) 01/06/17 09:36 Potassium 4.0 mmol/L (3.6-5.0) D 01/06/17 09:36 Chloride 101.8 mmol/L (98-107) 01/06/17 09:36 Carbon Dioxide 23 mmol/L (22-30) 01/06/17 09:36 Anion Gap 18 mmol/L 01/06/17 09:36 BUN 7 mg/dL (9-20) L 01/06/17 09:36 Creatinine 0.7 mg/dL (0.8-1.5) L 01/06/17 09:36 Estimated GFR > 60 ml/min 01/06/17 09:36 BUN/Creatinine Ratio 10.00 % 01/06/17 09:36 Glucose 112 mg/dL (75-100) H 01/06/17 09:36 Calcium 8.7 mg/dL (8.4-10.2) 01/06/17 09:36 Magnesium 2.10 mg/dL (1.7-2.3) 01/03/17 18:19 Total Bilirubin 0.20 mg/dL (0.1-1.2) 01/03/17 18:19 AST 17 units/L (5-40) 01/03/17 18:19 ALT 35 units/L (7-56) 01/03/17 18:19 Alkaline Phosphatase 83 units/L (35-129) 01/03/17 18:19 Troponin T < 0.010 ng/mL (0.00-0.029) 01/04/17 00:51 Total Protein 7.6 g/dL (6.3-8.2) 01/03/17 18:19 Albumin 4.4 g/dL (3.9-5) 01/03/17 18:19 Albumin/Globulin Ratio 1.4 % 01/03/17 18:19 Lipase 31 units/L (13-60) 01/03/17 18:19 Urine Color Straw (Yellow) 01/03/17 19:55 Urine Turbidity Clear (Clear) 01/03/17 19:55 Urine pH 5.0 (5.0-7.0) 01/03/17 19:55 Ur Specific [place] 1.008 (1.003-1.030) 01/03/17 19:55 Urine Protein <15 mg/dl mg/dL (Negative) 01/03/17 19:55 Urine Glucose (UA) Neg mg/dL (Negative) 01/03/17 19:55 Urine Ketones Neg mg/dL (Negative) 01/03/17 19:55 Urine Blood Neg (Negative) 01/03/17 19:55 Urine Nitrite Neg (Negative) 01/03/17 19:55 Urine Bilirubin Neg (Negative) 01/03/17 19:55 Urine Urobilinogen < 2.0 mg/dL (<2.0) 01/03/17 19:55 Ur Leukocyte Esterase Neg (Negative) 01/03/17 19:55 Urine WBC (Auto) 1.0 /HPF (0.0-6.0) 01/03/17 19:55 Urine RBC (Auto) 2.0 /HPF (0.0-6.0) 01/03/17 19:55 Urine Bacteria (Auto) 1+ /HPF (Negative) 01/03/17 19:55 Urine Mucus Few /HPF 01/03/17 19:55 Urine Opiates Screen Presumptive negative 01/03/17 19:55 Urine Methadone Screen Presumptive negative 01/03/17 19:55 Ur Barbiturates Screen Presumptive positive 01/03/17 19:55 Ur Phencyclidine Scrn Presumptive negative 01/03/17 19:55 Ur Amphetamines Screen Presumptive negative 01/03/17 19:55 U Benzodiazepines Scrn Presumptive negative 01/03/17 19:55 Urine Cocaine Screen Presumptive negative 01/03/17 19:55 U Marijuana (THC) Screen Presumptive negative 01/03/17 19:55 Drugs of Abuse Note Disclamer 01/03/17 19:55 Plasma/Serum Alcohol 0.35 gm% (0-0.07) H 01/03/17 18:19
[2017-01-06] MEDS: LOVENOX SUB-Q SCH (21:23)
[2017-01-06] MEDS ORDERED: AMBIEN PO PRN (22:03)
[2017-01-07] MEDS: NACL 0.9% 1000 ML 1,000 ML IV SCH (04:28)
[2017-01-07] MEDS: FLAGYL 500 MG/100 ML 500 MG/100 ML BAG IV SCH (05:30)
[2017-01-07] MEDS: FOLVITE PO SCH (09:04)
[2017-01-07] MEDS: VITAMIN B-1 PO SCH (09:04)
[2017-01-07] MEDS: LEVAQUIN 750MG/150ML 750 MG/150 ML BAG IV SCH (09:05)
[2017-01-07 09:46] VITALS: BP 142/101
--- NOTE | 2017-01-07 10:49 | Discharge Summary ---
Providers - Providers Date of Admission: 01/04/17 01:35 Attending physician: SUJIT HESTER MD Primary care physician: [employer] Hospitalization Reason for admission: Colitis, Alcohol withdrawal Condition: Stable Hospital course: Symptoms are admitted to the floor for treatment of coronary disease and alcohol withdrawal. Patient was treated with IV antibiotics, benzodiazepines according to [facility] protocol. Patient's nausea, vomiting and abdominal pain is getting better. Patient was discharged with by mouth Flagyl, Levaquin. Patient was advised to quit drinking alcohol and resources were given. Patient was stable at the time of discharge. Disposition: DISCHARGED TO HOME OR SELFCARE Time spent for discharge: 31 minutes - Discharge Diagnoses (1) Colitis Status: Acute (2) Alcohol abuse Status: Acute (3) Alcohol intoxication delirium Status: Acute (4) Alcohol withdrawal Status: Acute Qualifiers: Complication of substance-induced condition: C Core Measure Documentation - Palliative Care Palliative Care/ Comfort Measures: Not Applicable - Core Measures Any of the following diagnoses?: none Exam - Physical Exam Narrative exam: Not in cardiopulmonary distress. The patient appeared well nourished and normally developed. Vital signs as documented. Head exam is unremarkable. No scleral icterus . Neck is without jugular venous distension, thyromegaly, or carotid bruits. Lungs are clear to auscultation. Cardiac exam reveals regular rate and Rhythm. First and second heart sounds normal. No murmurs, rubs or gallops. Abdominal exam no abdominal tenderness. Extremities are nonedematous and both femoral and pedal pulses are normal. MARKETING CONTENT SPECIALIST: Alert and oriented 3. No focal weakness. - Constitutional Vitals: Temp Pulse Resp BP Pulse Ox 97.9 F 74 18 142/101 98 01/07/17 09:00 01/07/17 09:08 01/07/17 09:00 01/07/17 09:00 01/07/17 09:08 Plan Activity: no restrictions Weight Bearing Status: Full Weight Bearing Diet: regular Follow up with: PRIMARY CAREMD [Primary Care Provider] - 7 Days Prescriptions: HYDROcodone/APAP 5-325 [Connell 5/325] 1 each PO Q6HR PRN #10 tablet PRN Reason: Pain Levofloxacin [Levaquin TAB] 500 mg PO QDAY #5 tablet metroNIDAZOLE [Flagyl TAB] 500 mg PO Q8HR #15 tablet Ondansetron [Zofran TAB] 4 mg PO Q8HR PRN #6 tablet PRN Reason: Nausea
== END 2017-01-07 14:10 | disposition home or self-care (01) | DRG 897 ==
LOC: ED 17:47 → 4A 01-04 01:35
PROVIDERS: ADMIT Internal Medicine; ATTEND Internal Medicine
DX: F10.231 Alcohol dependence with withdrawal delirium (principal); K92.0 Hematemesis; K52.9 Noninfective gastroenteritis and colitis, unspecified; R31.9 Hematuria, unspecified; D69.6 Thrombocytopenia, unspecified; I10 Essential (primary) hypertension; F32.9 Major depressive disorder, single episode, unspecified; E87.6 Hypokalemia; F17.210 Nicotine dependence, cigarettes, uncomplicated; Z82.49 Family history of ischemic heart disease and other diseases of the circulatory system
CPT/HCPCS: 36415; 74176; 80048; 80053; 80307; 80320; 81001; 83690; 83735; 84484; 85007; 85025; 93005; 93010; 94760; 96374; 96375; 96376; G0480; J1650; J1956; J2060; J2270; J3411; J7030

== ENCOUNTER 2017-01-07 22:53 | Emergency (ER) | payer SELFPAY ==
[2017-01-07 23:55] LABS: Basophils % (Auto) 0.5 % (0.0-1.8); Eosinophils % (Auto) 0.5 % (0.0-4.3); Hemoglobin 14.2 gm/dl (11.8-15.2); Mean Corpuscular HGB Conc 33 % (32-34); Mean Corpuscular Hemoglobin 31 pg (28-32); Mean Corpuscular Volume 94 fl (84-94); Platelet Count 278 K/mm3 (140-440); Red Blood Count 4.58 M/mm3 (3.65-5.03); White Blood Count 9.2 K/mm3 (4.5-11.0)
[2017-01-07 23:59] LABS: Anion Gap 22 mmol/L; Blood Urea Nitrogen 6 mg/dL (9-20); Calcium 8.6 mg/dL (8.4-10.2); Carbon Dioxide 22 mmol/L (22-30); Glucose 102 mg/dL (75-100); Sodium 143 mmol/L (137-145)
[2017-01-08 02:27] LABS: Urine Drugs of Abuse Note Disclamer
[2017-01-08 03:09] LABS: Bacteria,Urine 1+ /HPF (Negative); Bilirubin,Urine NEG (Negative); Blood,Urine NEG (Negative); Ketones,Urine NEG (Negative); Leukocyte Esterase,Urine TR (Negative); Mucus,Urine FEW /HPF; Nitrite,Urine NEG (Negative); Protein,Urine <15 mg/dL mg/dL (Negative); Urobilinogen,Urine < 2.0 mg/dL (<2.0); WBC,Urine < 1.0 /HPF (0.0-6.0)
[2017-01-08] MEDS ORDERED: NACL 0.9% 1000 ML 1,000 ML IV ONE ×2 (03:55→04:50)
[2017-01-08] MEDS ORDERED: MORPHINE IV ONE (04:50)
[2017-01-08] MEDS ORDERED: ZOFRAN IV ONE (04:50)
[2017-01-08 05:20] LABS: Alanine Aminotransferase 22 units/L (7-56); Albumin 3.9 g/dL (3.9-5); Albumin/Globulin Ratio 1.2 %; Alkaline Phosphatase 71 units/L (35-129); Lipase 37 units/L (13-60); Total Protein 7.1 g/dL (6.3-8.2)
[2017-01-08 05:22] LABS: Bilirubin,Direct < 0.2 mg/dL (0-0.2); Bilirubin,Indirect 0.2 mg/dL
[2017-01-08] MEDS ORDERED: NACL ONE (05:34)
--- NOTE | 2017-01-08 05:50 | Emergency Department Report ---
HPI - General Chief Complaint: Chest Pain Time Seen by Provider: 01/08/17 04:27 - HPI HPI: The patient is a 28-year-old male who presents for evaluation of chest pain and abdominal pain. The patient reports midsternal chest pain and epigastric abdominal pain for the past 2 days. He states that his chest pain and abdominal pain have been constant, 10/10 in severity, sharp in quality, exacerbated with deep breaths. He also reports associated dyspnea. He shares that he experienced an episode of forceful vomiting and hematemesis earlier today. He admits to heavy daily alcohol consumption. The patient denies fever , trauma to the chest or abdomen, syncope, hemoptysis, unilateral leg swelling, recent immobilization, history of DVT or PE, recent cancer. ED Past Medical Hx - Past Medical History Previous Medical History?: Yes Hx Hypertension: Yes Hx Heart Attack/AMI: Yes Hx Psychiatric Treatment: Yes (depression, alcohol abuse) Additional medical history: Patient reports prior history of UT. 4 years ago he describes being admitted for 2 days, to a hospital in [facility], being diagnosed with a heart attack. He cannot describe any tests that were done, even after we described cardiac stress test and cardiac catheterization. They do not sound familiar to him. He did not undergo any procedures such as stenting or bypass. Alcohol dependence and abuse. - Surgical History Past Surgical History?: No - Social History Smoking Status: Current Every Day Smoker Substance Use Type: Alcohol - Medications Home Medications: Home Medications Medication Instructions Recorded Confirmed Last Taken Type HYDROcodone/APAP 5-325 [[place] 1 each PO Q6HR PRN #10 tablet 01/07/17 Unknown Rx 5/325] Levofloxacin [Levaquin TAB] 500 mg PO QDAY #5 tablet 01/07/17 Unknown Rx Ondansetron [Zofran TAB] 4 mg PO Q8HR PRN #6 tablet 01/07/17 Unknown Rx metroNIDAZOLE [Flagyl TAB] 500 mg PO Q8HR #15 tablet 01/07/17 Unknown Rx ED Review of Systems ROS: Stated complaint: ETOH/CHEST PAIN Other details as noted in HPI Constitutional: denies: fever ENT: denies: throat or neck pain Respiratory: denies: cough, shortness of breath Cardiovascular: reports chest pain Endocrine: denies unexplained weight loss or gain Gastrointestinal: reports abdominal pain, nausea Genitourinary: denies: dysuria Musculoskeletal: denies: leg swelling Skin: denies: rash Neurological: denies: headache Hematological/Lymphatic: denies: easy bleeding or easy bruising Psych: denies sadness or hopelessness Physical Exam - Physical Exam Vital Signs: Vital Signs 01/07/17 01/08/17 23:11 05:07 Temperature 98.3 F Pulse Rate 92 H Respiratory 16 20 Rate Blood Pressure 100/71 O2 Sat by Pulse 100 Oximetry Physical Exam: General: well-nourished, well-developed, no acute distress Head: Normocephalic, atraumatic Eyes: normal sclera ENT: Mucous membranes are pale and dry Neck: No neck stiffness, no cervical adenopathy Respiratory: Breath sounds equal bilaterally, no wheezing, rales, or rhonchi Cardio: S1 and S2 present, no murmurs, rubs, gallops, capillary refill is delayed Abdomen: Normoactive bowel sounds, soft abdomen, diffuse abdominal tenderness present, concentrating in the epigastrium, patient guarding, positive rebound tenderness Chest WALL/Back: + Midsternal tenderness to palpation of the chest wall is present, no CVA tenderness with percussion Musc: No pitting edema Skin: No rash Neuro: no facial drooping, normal speech Psych: Normal affect ED Course Vital Signs 01/07/17 01/08/17 23:11 05:07 Temperature 98.3 F Pulse Rate 92 H Respiratory 16 20 Rate Blood Pressure 100/71 O2 Sat by Pulse 100 Oximetry ED Medical Decision Making - Lab Data Result diagrams: 01/07/17 23:26 01/07/17 23:26 - Medical Decision Making The patient was seen and examined by myself. The patient is placed on a supervisor metal hanging and continuous pulse ox. On initial evaluation, the patient was found to be in no distress. EKG was negative for findings suggestive of acute cardiac infarct. Labs and imaging are obtained. IV access is established and the patient given 1 L normal saline fluid bolus for treatment of dehydration, IV Zofran for nausea, and IV morphine for his pain. Chest x-ray is negative for pneumothorax, focal consolidation, pulmonary vascular congestion, pleural effusion, or other obvious acute cardiopulmonary disease process. As the patient reports an episode of forceful vomiting and hematemesis, CAT scan of the chest and abd/pelvis will be obtained to rule out pneumomediastinum and bowel perforation. Lab results revealed elevated EtOH level of 0.28, and otherwise labs were unrevealing. CT scan of the chest, abdomen, and pelvis is pending. The patient signed off to the oncoming morning shift physician Dr. Chawla who agrees to follow-up on CT scan results and ultimate disposition. Critical care attestation.: If time is entered above; I have spent that time in minutes in the direct care of this critically ill patient, excluding procedure time. ED Disposition Clinical Impression: Alcohol intoxication delirium, Dehydration, Acute chest pain, Abdominal pain, acute, epigastric, Colitis Disposition: DISCHARGED TO HOME OR SELFCARE Is pt being admited?: No Does the pt Need Aspirin: No Condition: Fair Instructions: Chest Pain (ED) Referrals: PRIMARY CARE, [Primary Care Provider] - 3-5 Days Time of Disposition: 06:54
--- NOTE | 2017-01-08 06:26 | Cat Scan Report ---
FINAL REPORT PROCEDURE: CT CHEST W CON TECHNIQUE: Computerized axial tomography of the chest was performed during the IV injection of iodinated nonionic contrast. HISTORY: midsternal chest pain, vomiting COMPARISON: No prior studies are available for comparison. TECHNICAL QUALITY: Satisfactory. FINDINGS: Heart and pericardium: Normal. Thoracic aorta: Thoracic aorta is normal in caliber. There is no aneurysm or dissection.. Pulmonary vasculature: Normal. Lymph nodes: No enlarged thoracic lymph nodes. Lungs: The lungs are clear and expanded. There elevation of the left hemidiaphragm. There is atelectasis at the left lung base. There are no infiltrates.. Pleural space: There are no pleural effusions or pneumothoraces . Musculoskeletal structures: No significant abnormality. Upper abdominal structures: No significant abnormality. IMPRESSION: Heart size is normal. Thoracic aorta is normal in caliber. There is no aneurysm or dissection.. The lungs are clear and expanded. There elevation of the left hemidiaphragm. There is atelectasis at the left lung base. There are no infiltrates.. There are no pleural effusions or pneumothoraces .
--- NOTE | 2017-01-08 06:38 | Cat Scan Report ---
FINAL REPORT PROCEDURE: CT ABDOMEN PELVIS W CON TECHNIQUE: Computerized axial tomography of the abdomen and pelvis was performed after the IV injection of iodinated nonionic contrast. HISTORY: abdominal pain COMPARISON: 01/04/2017 FINDINGS: Visualized lower thorax: No significant abnormality. Liver: Normal size and attenuation. Spleen: Normal size and attenuation. Gallbladder and biliary system: Normal. Pancreas: Normal. Adrenals: Normal. Kidneys: Normal. GI tract: There is no bowel obstruction. The appendix is normal. There is mild residual thickening of the sigmoid colon which is nonspecific.. Lymph nodes and mesentery: Normal. Vasculature: Normal. Bladder: Normal. Reproductive organs: Normal. Peritoneum: There is no ascites or free air, abscess or adenopathy.. Musculoskeletal structures: No significant abnormality. Other: None. IMPRESSION: There is no bowel obstruction. The appendix is normal. There is mild residual thickening of the sigmoid colon which is nonspecific.. There is no ascites or free air, abscess or adenopathy..
[2017-01-08 08:02] VITALS: BP 117/88
--- NOTE | 2017-01-08 09:19 | Emergency Department Report ---
Blank Doc - Documentation Documentation: Patient has been reexamined and is clinically sober. He continues to complain of abdominal pain. Lab and imaging results reviewed. Patient will be discharged home at this time follow up with his primary care physician.
== END 2017-01-08 09:42 | disposition home or self-care (01) ==
LOC: ED 22:53
DX: F10.121 Alcohol abuse with intoxication delirium (principal); E86.0 Dehydration; R07.81 Pleurodynia; R10.13 Epigastric pain; I10 Essential (primary) hypertension; I50.9 Heart failure, unspecified; F17.200 Nicotine dependence, unspecified, uncomplicated; F32.9 Major depressive disorder, single episode, unspecified
CPT/HCPCS: 36415; 71010; 71260; 74177; 80048; 80074; 80307; 81001; 83690; 84484; 85025; 93005; 93010; 96361; 96374; 96375; 99285; G0480; J2270; J2405; J7030; Q9967; 80320